=== PATIENT | male | born 1960 ===

== ENCOUNTER 2016-07-11 16:08 | Emergency (ER) | payer BC ==
--- NOTE | 2016-07-11 16:10 | PDOC ---
Suture Removal/Wound Check HPI - History of Present Illness History Source: Yes: Patient Exam Limitations: Yes: No Limitations - Onset of Previous Treatment Comment:: 07/11/16 16:17 The patient is a 56 year old male with no significant past medical history, who presents to the ER with a laceration on the right index finger for several hours. Patient states he was putting the garbage in the recycling bin and cut his right index with an open tin can. Patient is not able to recall his last tetanus shot. Denies taking blood thinning medication Denies weakness, paresthesia, numbness Denies decreased range of motion Denies fever Denies foreign substance in wound <Roberta Eugene - Last Filed: 07/11/16 16:21> <Chris Bailey - Last Filed: 07/11/16 16:57> - History of Present Illness Chief Complaint: Laceration Stated Complaint: FINGER LAC Time Seen by Provider: 07/11/16 16:10 Past History <Roberta Eugene - Last Filed: 07/11/16 16:21> <Chris Bailey - Last Filed: 07/11/16 16:57> - Past Medical History Allergies/Adverse Reactions: Allergies No Known Allergies Allergy (Verified 07/11/16 16:09) Home Medications: Ambulatory Orders Levothyroxine [Synthroid -] 75 mcg PO DAILY 07/11/16 Rosuvastatin Calcium [Crestor] 5 mg PO DAILY 07/11/16 Suture Removal/Wound Check PE - Physical Exam Comments: 07/11/16 16:18 GENERAL: Awake, alert, and fully oriented, in no acute distress HEAD: No signs of trauma EYES: PERRLA, EOMI, sclera anicteric, conjunctiva clear ENT: Auricles normal inspection, hearing grossly normal, nares patent, oropharynx clear without exudates. Moist mucosa NECK: Normal ROM, supple, no lymphadenopathy, JVD, or masses LUNGS: Breath sounds equal, clear to auscultation bilaterally. No wheezes, and no crackles HEART: Regular rate and rhythm, normal S1 and S2, no murmurs, rubs or gallops ABDOMEN: Soft, nontender, normoactive bowel sounds. No guarding, no rebound. No masses EXTREMITIES: Normal range of motion, no edema. No clubbing or cyanosis. No cords, erythema, or tenderness NEUROLOGICAL: Cranial nerves II through XII grossly intact. Normal speech, normal gait SKIN: Laceration on the right index finger <AkBilly ramireza - Last Filed: 07/11/16 16:21> - Physical Exam Current Severity Level: Mild Maximum Severity Level: Mild Location of Laceration/Wound: right: Finger (right 2nd digit, 3 cm laceration at DIP, bleeding full ROM at PIP/DIP, neurovascularly intact, capillary refill < 2 sec) Pain Radiation: None <Chris Bailey - Last Filed: 07/11/16 16:57> *Review of Systems - Review of Systems Comments:: 07/11/16 16:18 GENERAL/CONSTITUTIONAL: No fever or chills. No weakness. HEAD, EYES, EARS, NOSE AND THROAT: No change in vision. No ear pain or discharge. No sore throat. CARDIOVASCULAR: No chest pain or shortness of breath. RESPIRATORY: No cough, wheezing, or hemoptysis. GASTROINTESTINAL: No nausea, vomiting, diarrhea or constipation. GENITOURINARY: No dysuria, frequency, or change in urination. MUSCULOSKELETAL: No joint or muscle swelling or pain. No neck or back pain. SKIN: Laceration on right index finger NEUROLOGIC: No headache, vertigo, loss of consciousness, or change in strength/ sensation. ENDOCRINE: No increased thirst. No abnormal weight change. HEMATOLOGIC/LYMPHATIC: No anemia, easy bleeding, or history of blood clots. ALLERGIC/IMMUNOLOGIC: No hives or skin allergy. <AkRoberta ramirez - Last Filed: 07/11/16 16:21> Procedures - Laceration/Wound Repair Right Lateral Dorsal 1st digit Anesthesia: 1% Lidocaine <[facility] - Last Filed: 07/11/16 16:21> - Laceration/Wound Repair Right Finger 2nd digit Wound Length: 2.6 to 5.0 cm Wound Explored: clean Wound's Depth, Shape: into muscle, linear Irrigated w/ Saline: Yes Betadine Prep: Yes Anesthesia: 1% Lidocaine (2 cc 1% lidocaine injected into wound margind) Wound Repaired With: Sutures Suture Size/Type: 6:0, nylon Number of Sutures: 4 Layer Closure: No Sterile Dressing Applied: Yes Splint Applied: Yes Progress: 07/11/16 16:54 pt tolerated procedure well, capillary refill < 2sec after procedure, no bleeding, pt tolerated procedure well Finger tubing and splint applied Pt in agreement with plan <Chris Bailey - Last Filed: 07/11/16 16:57> ED Treatment Course - ADDITIONAL ORDERS Additional order review: 07/11/16 16:55 Finger laceration, will need to have sutures removed in 10 days if worsen return to ER <Chris Bailey - Last Filed: 07/11/16 16:57> *DC/Admit/Observation/Transfer <Roberta Eugene - Last Filed: 07/11/16 16:21> - Discharge Dispostion Admit: No <Chris Bailey - Last Filed: 07/11/16 16:57> Diagnosis at time of Disposition: Laceration of finger Qualifiers: Encounter type: initial encounter Qualified Code(s): S61.219A - Laceration without foreign body of unspecified finger without damage to nail, initial encounter - Discharge Dispostion Disposition: HOME Condition at time of disposition: Stable - Patient Instructions Printed Discharge Instructions: DI for Laceration Repair Additional Instructions: Keep clean Use finger splint Remove sutures in 10 days If worsen return to ER
[2016-07-11] MEDS ORDERED: DIPHTH,PERTUSS(ACELL),TET 0.5 ML DISP.SYRIN IM ONE (16:12)
[2016-07-11 16:15] VITALS: BP 143/92; PULSE 88; TEMP 98.3; BMI 25.8
== END 2016-07-11 17:02 | disposition home or self-care (01) ==
LOC: FER 16:08
PROC: 3E0234Z Introduction of Serum, Toxoid and Vaccine into Muscle, Percutaneous Approach (ICD-10-PCS; principal; 2016-07-11)
PROC: 0HQFXZZ Repair Right Hand Skin, External Approach (ICD-10-PCS; 2016-07-11)
DX: S61.210A Laceration without foreign body of right index finger without damage to nail, initial encounter (principal); W26.8XXA Contact with other sharp object(s), not elsewhere classified, initial encounter; Y93.89 Activity, other specified; Y92.9 Unspecified place or not applicable
CPT/HCPCS: 90715; 99283-25

== ENCOUNTER 2016-07-23 08:28 | Emergency (ER) | payer BC ==
[2016-07-23 08:32] VITALS: BP 139/85; PULSE 77; TEMP 97.5; BMI 25.1
--- NOTE | 2016-07-23 08:43 | PDOC ---
Suture Removal/Wound Check HPI - History of Present Illness Chief Complaint: Suture/Staple Removal(Here) Stated Complaint: SUTURE REMOVAL Time Seen by Provider: 07/23/16 08:30 History Source: Yes: Patient Exam Limitations: Yes: No Limitations Date of Last ED visit: 07/11/16 - Previous ED Treatment Type of procedure performed on last visit: Yes: Laceration Repair (Patient presents for suture removal. He cut his finger on the edge of a tin can on July 11. He was seen here in the emergency Department and had sutures placed. He comes in now for wound check and suture removal. The wound has been healing well. There has been no redness, no discharge, and no pain.) Past History - Past Medical History Allergies/Adverse Reactions: Allergies No Known Allergies Allergy (Verified 07/23/16 08:29) Home Medications: Ambulatory Orders Levothyroxine [Synthroid -] 75 mcg PO DAILY 07/11/16 Rosuvastatin Calcium [Crestor] 5 mg PO DAILY 07/11/16 - Immunization History Tetanus Status: Unknown - Social History Smoking Status: Never smoked Suture Removal/Wound Check PE - Physical Exam Laceration/Wound Check Symptoms: denies: Pain, Fever, Chills, Redness, Discharge Pain Intensity: 0 Pain Localization: None Location of Laceration/Wound: right: Finger (index finger) Pain Radiation: None (Right index finger with laceration over the radial surface , distal phalanx. Wound is healing well. There is no redness or discharge.) Procedures - Laceration/Wound Repair Right Finger 2nd digit Progress: 07/23/16 08:48 Sutures all removed with a #11 blade scalpel. Wound is healing well. Patient advised. Stable for discharge. Medical Decision Making - Medical Decision Making 07/23/16 08:49 Patient here for wound check and suture removal, right index finger. The wound is healing well. Sutures removed. Patient advised. Stable for discharge. *DC/Admit/Observation/Transfer Diagnosis at time of Disposition: Encounter for wound re-check, Encounter for removal of sutures - Discharge Dispostion Disposition: HOME Condition at time of disposition: Stable Admit: No - Patient Instructions Printed Discharge Instructions: DI for Suture Removal
== END 2016-07-23 08:57 | disposition home or self-care (01) ==
LOC: FER 08:28
DX: Z48.02 Encounter for removal of sutures (principal)
CPT/HCPCS: 99281-25